=== PATIENT | male | born 1980 | race Caucasian/White ===

== ENCOUNTER 2016-11-04 08:35 | Day surgery (SDC) | payer BC ==
[~2016-11-04 08:35] MED LIST: LACTATED RINGERS 1,000 ML IV SCH
[2016-11-04] MEDS ORDERED: LACTATED RINGERS 1,000 ML ONE (08:41)
[2016-11-04] MEDS ORDERED: IV START KIT ONE (08:42)
[2016-11-04] MEDS ORDERED: PROPOFOL 20 ML IV ONE (09:37)
== END 2016-11-04 10:15 | disposition home or self-care (01) ==
LOC: SDC 08:35
PROVIDERS: ATTEND Internal Medicine Gastroenterology
PROC: 0DJD8ZZ Inspection of Lower Intestinal Tract, Via Natural or Artificial Opening Endoscopic (ICD-10-PCS; principal; 2016-11-04)
DX: Z12.11 Encounter for screening for malignant neoplasm of colon (principal); Z80.0 Family history of malignant neoplasm of digestive organs; G47.30 Sleep apnea, unspecified
CPT/HCPCS: 45378; J7120